=== PATIENT | male | born 1965 | race Caucasian/White ===

== ENCOUNTER 2016-09-06 07:41 | Day surgery (SDC) | payer OTHER ==
[~2016-09-06] VITALS: Ht 181.6 cm; Wt 105.8 kg
[2016-09-06] VITALS (10 sets, daily range): BP systolic 105–141; BP diastolic 72–89; PULSE 54–72; RESP 9–25; O2SAT 96–100
--- NOTE | 2016-09-06 07:09 | PCM.HPANE ---
Patient Data Surgeon Admitting Provider: Attending Provider:Mark Montana MD Primary Care Physician:Roya Other Provider:Tamera Nesbitt Anesthesia Reason for Visit Right Kidney Stone Ht/WT & BMI Height (Feet): 5 Height (Inches): 11.5 Weight (Kilograms): 105.778 Body Mass Index 31.00 Allergies Coded Allergies: TAPE (Verified Adverse Reaction, Severe, blisters, 09/05/16) Past Anesthesia History Anesthesia History: Denies:: Anesthesia Reactions, Malignant Hyperthermia Diabetes History Hx Diabetes?: No MRSA MRSA: No Medications Reported Medications Hydrocodone-Acetaminophen 10-325 mg 1 Each Tablet1-2 Tablet PO Q4H PRN For Pain Ref 0 09/05/16 Ciprofloxacin (Cipro)500 Mg [id number] Mg PO BID Ref 0 09/05/16 Albuterol Sulfate (Ventolin HFA Inhaler)200 Puff/18 Gm Inhaler2 Puff INHALATION Q4H PRN For Wheezing 07/15/16 Discontinued Reported Medications Sucralfate 1 Gm Tablet1 Gm PO ACHS #100 1/2 hour before meals and at bedtime 07/15/16 Famotidine 20 Mg [id number] Mg PO BID #60 07/15/16 History History of ENT Problems?: Yes HEENT History: Positive for:: Dysphagia (2000 esophageal stricture) Teeth Condition: Broken Teeth Tooth Decay Hx of Heart Problems?: No Cardiovascular History: Denies:: Cardiac Surgery Chest Pain Congestive Heart Failure Heart Murmur Hypertension Hx of Respiratory Problem?: Yes Respiratory History: Denies:: Tuberculosis Use of C-PAP Machine (SNORES) Hx Neurologic Problems?: Yes Neurological History: Positive for:: Headaches (HX OF HEADACHES W/ EJACULATION ) TIA (POSSIBLY) Denies:: CVA Seizures Hx of GI Problems?: Yes Gastrointestinal History: Positive for:: Gastroesphageal Reflux (HX PUD) Rectal Bleeding Denies:: Diverticulitis Other GI Pertinent History: S/P APPY Hx of Problems?: Yes Genitourinary History: Positive for:: Kidney Stones (HX MULT. PRIOR STONES PASSED ON OWN; S/P ESWL,CYSTO/LITHOTRIPSY 07/06) Other Pertinent History: C/OF SCROTAL PAIN,NOCTURIA & URINARY DRIBBLING Male Hx: Denies:: Prostate Problems Scrotal Mass Testicular Surgery Skin History: Denies:: History Skin Disorders? Pressure Ulcers Hx Musculoskeletal Problems?: Yes Musculoskeletal History: Positive for:: Back Injury (L4-5, C6-7) Osteoarthritis Hx of Psycho/Social Problems?: Yes Psycho Social History: Positive for:: Anxiety Hx Depression Hx Surgeries?: Yes (APPY,SPINAL SURGERY,ESWL,CYSTO/LITHOTRIPSY) Hx Any Other Health Problems?: Yes Other History: Denies:: Cancer Endocrine Disease Hospitalization Thyroid Disease History Blood Transfusions: Denies:: Blood Transfusions Hx Diabetes: No Hx Alcohol Use: NoHx Substance Use: Yes (marijuana twice daily) Smoking Status: Current Every Day Smoker Have You Smoked inLast 12 mo: Yes (marijuana 2X/DAY) Stop/Bang S-Snoring: Do You Snore Loudly: Yes T-Tired: feel tired, fatigued: Yes O-Obsered: Observed not breath: Yes P-Blood Pressure: treated: No B- Body Mass Index > 35 kg/m2: No A- Age over 50: Yes N- Neck Large Circumference: Yes G- Gender Male: Yes BIRGIT Total Score: 6 Risk Assessment Category Category 1A: Patient has history of documented sleep apnea, and HAS NOT received any narcotic, sedative or anesthesia administration during this stay. Category 1B: Patient has history of documented sleep apnea, and HAS received any narcotic , sedative or anesthesia administration during this stay Category 2: Patient has SUSPECTED Obstructive Sleep Apnea, and HAS received any narcotic , sedative or anesthesia administration during this stay. Category 3: Patient has SUSPECTED Obstructive Sleep Apnea and HAS NOT received narcotic, sedative or anesthesia administration during this stay. Category 4: Outpatient in Procedural Areas with known sleep apnea or who screen positive for High Risk via the STOP/BANG questionnaire. Exam Exam General Appearance: Alert, Oriented X3, Cooperative HEENT/AIRWAY: MP 2, Neck Movement (from), Mouth Opening (wnl) Lungs: Clear to Auscultation Heart: Exam Unremarkable Plan Impression Patient chart reviewed, patient interviewed and anesthestic plan with risks, benefits, and alternatives discussed, and informed consent obtained. NPO Status: 07/14/16 0000 ASA Physical Status: ASA2 Mod Systemic Disease Anesthetic Plan: GA Bene/Risks/Altern/Consents: Yes HP Complete Prior to Induction: Yes Aurelio Russell MD Sep 06, 2016 07:09
[~2016-09-06 07:41] MED LIST: ALBU18HF INHALATION; CIPR-231 PO; CeFAZolin Inj 2 GM in IV Premix 1 EACH IV SCH; HYDR-3740 PO; Lactated Ringer's 1,000 ML IV SCH
[2016-09-06] MEDS ORDERED: Ondansetron 2 mg/mL 2 mL Inj ONE (07:42)
[2016-09-06] MEDS ORDERED: Rocuronium 10 mg/mL 5 mL Inj ONE (07:42)
[2016-09-06] MEDS ORDERED: fentaNYL-PF 50 mCg/mL 2 mL Inj ONE (07:42)
[2016-09-06] MEDS ORDERED: Propofol 10,000 mCg/mL 20 mL Inj ONE (07:42)
[2016-09-06] MEDS ORDERED: LORazepam 1 mg Tablet ONE (08:06)
[2016-09-06] MEDS ORDERED: Lactated Ringer's 1,000 ML IV ONE (08:11)
[2016-09-06] MEDS: fentaNYL-PF 50 mCg/mL 2 mL Inj ONE ×2 (08:19→08:31)
[2016-09-06] MEDS ORDERED: LORazepam 1 mg Tablet PO PRN (08:30)
[2016-09-06] MEDS ORDERED: fentaNYL-PF 50 mCg/mL 2 mL Inj IVPUSH PRN ×2 (08:30→09:55)
[2016-09-06] MEDS ORDERED: Lactated Ringer's 500 ML IV PRN (09:52)
[2016-09-06] MEDS ORDERED: Lactated Ringer's 1,000 ML IV SCH (09:52)
[2016-09-06] MEDS ORDERED: HYDROmorphone 1 mg/mL Inj IVPUSH PRN (09:55)
[2016-09-06] MEDS ORDERED: Dexamethasone 4 mg/mL Inj IVPUSH PRN (09:55)
[2016-09-06] MEDS ORDERED: Ondansetron 2 mg/mL 2 mL Inj IVPUSH PRN (09:55)
[2016-09-06] MEDS ORDERED: Atropine 0.4 mg/mL Inj IVPUSH PRN (09:55)
[2016-09-06] MEDS ORDERED: Phenylephrine 10,000 mCg/mL Inj IVPUSH PRN (09:55)
[2016-09-06] MEDS ORDERED: Labetalol 5 mg/mL 4 mL Inj IV PRN (09:55)
[2016-09-06] MEDS ORDERED: EPHEDrine Sulfate 50 mg/mL Inj IVPUSH PRN (09:55)
[2016-09-06] MEDS ORDERED: hydrALAZINE 20 mg/mL Inj IVPUSH PRN (09:55)
[2016-09-06] MEDS ORDERED: Belladonna Alk-Opium 60 mg Rectal Suppository RECTAL ONE (10:13)
--- NOTE | 2016-09-06 11:29 | PCM.SURGPO ---
Immediate Operative Note Date of Surgery: Sep 06, 2016 Pre Operative Diagnosis R renal calculus Post Operative Diagnosis R renal calculus Procedure Cystoscopy, R ureteroscopy, Holmium laser lithotripsy, basket extraction of calculus fragments, and R ureteral stent placement Surgeon and Pavilion Cutter Surgeon: Mark Montana MD Assistants: None Findings R semi-rigid ureteroscopy revealed no calculi in R distal or R mid ureter. A 12 /14F x 35cm ureteral access sheath was placed in R ureter. R flexible ureteroscopy revealed no calculi in R proximal ureter and an approx. 10-11mm R lower pole renal calculus. Holmium laser lithotripsy and basket extraction of calculus fragments were performed. R ureteral JJ stent was placed. Complications There were no periprocedural complications identified. Surgical Specimen Removed: Yes Specimen sent to Pathology: No Surgical Specimen description: R renal calculus fragments sent to lab for stone analysis Anesthetic Administered: GA Grafts, Implants: Other (28cm x 5F R ureteral JJ stent (no string)) Output, Estimated Blood Loss: <5 Blood Admin during surgery: No Additional information Patient to be discharged home when stable, to return to see me in 1 week for cystoscopy, stent removal, and post-op visit. Mark Montana MD Sep 06, 2016 11:29
--- NOTE | 2016-09-06 11:33 | PCM.ANEP1 ---
Post Anesthesia Phase 1 PACU Phase 1 Assessment Date of Service: Sep 06, 2016 Vital Signs Vital Signs Date Time Temp Pulse Resp B/P Pulse Ox O2 Delivery O2 Flow Rate FiO2 09/06/16 11:30 59 16 122/86 97 Room Air 09/06/16 11:25 72 25 141/85 96 Room Air 09/06/16 11:20 36.1 09/06/16 08:20 36.4 64 18 105/72 96 Room Air Anesthetic Administered: GA Level of Alertness: Awake, talking ALEXANDER's with Equal Strength: Yes Pain: No Nausea or Vomiting: No Oxygen Delivery: Room Air Lungs: Normal Air Movement Aurelio Russell MD Sep 06, 2016 11:33
--- NOTE | 2016-09-06 11:39 | PCM.DISURG ---
Surgical Discharge Instruction Date of Service Sep 06, 2016 Dates of Hospitalization Date of Hospital Admission Sep 06, 2016 Providers Admitting Physician: Mark Montana MD Primary Care Physician: Nopgermania Attending Physician: Mark Montana MD Discharge Diagnosis Discharge Diagnosis R renal calculus Post Operative diagnosis R renal calculus Diet Discharge Diet: No restrictions, Other (Drink at least 10-12 8oz. glasses (3 liters) of fluids per day) Activity Discharge Activity-General: No restrictions, No driving while taking narcotic Dressing and Incisional Care Hygiene: May shower Follow Up Plan Follow-up Provider (F9): Mark Montana MD Follow-up appointment: Weeks (1 week for cystoscopy, stent removal, and post- op visit) Call your provider for: Fever, Chills, Vomiting, Other (Pain uncontrolled by pain medications) Mark Montana MD Sep 06, 2016 11:39
[2016-09-06] MEDS ORDERED: oxyCODONE-Acetamin 10-325 mg Tablet PO ONE (11:47)
[2016-09-06] MEDS ORDERED: oxyCODONE-Acetamin 5-325 mg Tablet PO ONE (11:55)
[2016-09-06] MEDS ORDERED: Phenazopyridine 97.5 mg Tablet ONE (13:15)
[2016-09-06] MEDS ORDERED: oxyCODONE-Acetamin 5-325 mg Tablet PO SCH (16:30)
--- NOTE | 2016-09-07 03:01 | OP ---
[address] [address] OPERATIVE REPORT PATIENT: LOREN RIOS : 1965 MR#: [id number] ADMIT: 09/06/2016 JOB ID: [id number] DATE OF SURGERY: 09/06/2016 PREOPERATIVE DIAGNOSIS(ES): Right renal calculus. POSTOPERATIVE DIAGNOSIS(ES): Right renal calculus. PROCEDURE: 1. Cystoscopy. 2. Right ureteroscopy. 3. Holmium laser lithotripsy. 4. Basket extraction of calculus fragments. 5. Right ureteral stent placement. SURGEON: Mark Montnaa MD. MOBILE APPLICATION DEVELOPER: None. ANESTHESIA: General. ESTIMATED BLOOD LOSS: Less than 5 mL. SPECIMENS: Right renal calculus fragments sent to the lab for stone analysis. DRAINS: A 28 cm x 5-Panamanian right ureteral double-J stent. COMPLICATIONS: None. CONDITION: Stable. FINDINGS: Right semi-rigid ureteroscopy revealed no calculi in right distal or right mid ureter. A 12/14-Panamanian x 35 cm ureteral access sheath was placed in right ureter. Right flexible ureteroscopy revealed no calculi in right proximal ureter and an approximately 10-11 mm right lower pole renal calculus. Holmium laser lithotripsy and basket extraction of calculus fragments were performed. Right ureteral double-J stent was placed. INDICATIONS: The patient is a 50-year-old male with a right renal calculus, with right back and right flank pain. The patient now presents for cystoscopy, right ureteroscopy, holmium laser lithotripsy, basket extraction of calculus fragments and right ureteral stent placement. PROCEDURE: Patient was brought to the operating room and placed supine on the operating room table. The patient was given Ancef IV antibiotics. Sequential compression device boots were placed. General anesthesia was administered. The patient was brought down into dorsal lithotomy position. The patient was prepped and draped in standard sterile surgical fashion. A 22-Panamanian rigid cystoscope was placed into the distal urethra without difficulty. Cystoscopy revealed normal distal urethra, no bladder, tumors, lesions or calculi, and bilateral ureteral orifices in normal position. An angled-tip UltraTrack guidewire was passed into the right ureteral orifice and passed up the right ureter into right renal pelvis. The rigid cystoscope was removed from the patient. The guidewire was secured to the drape with a Jodie clamp as a safety wire. A semi-rigid ureteroscope was passed through the urethra and bladder and into the right ureteral orifice with assistance of a PTFE guidewire. Right semi-rigid ureteroscopy revealed no calculi in right distal or right mid ureter. The PTFE guidewire was advanced up the right ureter and into the right renal pelvis. The semi-rigid ureteroscope was removed from the patient. A 12/14-Panamanian x 35 cm ureteral access sheath was passed over the PTFE guidewire through the urethra and bladder and up the right ureter into the right mid ureter. The inner portion of the sheath and PTFE guidewire were removed from the patient. A flexible ureteroscope was advanced through the ureteral access sheath into the right proximal ureter. Right flexible ureteroscopy revealed no calculi in right proximal ureter and an approximately 10-11 mm right lower pole renal calculus. The calculus was manipulated into an upper pole calyx using a 2.2-Panamanian NCircle Nitinol basket, and holmium laser lithotripsy of the calculus was performed using a 273 micron holmium laser fiber. Basket extraction of all significant 2 mm or larger calculus fragments was performed using the NCircle Nitinol basket. Calculus fragments were sent to the lab for stone analysis. The right renal pelvis and all calyces were visualized. No significant 2 mm or larger calculus fragments were seen. A small amount of contrast was instilled into the right renal collecting system to illuminate the right renal collecting system to aid in stent placement. The flexible ureteroscope and ureteral access sheath were backed down the right ureter and the entire right ureter was visualized. No significant 2 mm or larger calculus fragments were seen. The flexible ureteroscope and ureteral access sheath were removed from the patient. The rigid cystoscope was passed over the safety guidewire through the urethra into the bladder. A 28 cm x 5-Panamanian ureteral double-J stent, with the stent string removed prior to stent placement, was passed over the guidewire through the cystoscope and passed up the right ureter and placed so that the proximal pigtail was located in right renal pelvis and distal pigtail was located in the bladder. The guidewire was removed. Correct positioning of the stent was confirmed both fluoroscopically and under direct visualization using the cystoscope. Good efflux of contrast could be seen draining from the distal end of the stent into the bladder, further confirming correct stent positioning. The bladder was drained via the cystoscope. The cystoscope was removed from the patient. Skin was cleaned and dried. Patient was placed in supine position. Patient was awakened from general anesthesia and transferred to the recovery room in stable condition. The patient tolerated the procedure well. Plan is for the patient to be discharged home when stable and to return to see me in the office in one week for cystoscopy, stent removal and postoperative visit. JOVITA
--- NOTE | 2016-09-07 07:08 | PCM.ANEP2 ---
Post Anesthesia Evaluation ASA/CMS Post Anesthesia VS in Patient's Normal Range?: Yes Resp Stable; Airway Patent?: Yes CV Function & Hydration Stable: Yes Mental Status Recovered?: Yes Pain control Satisfactory?: Yes N/V Control Satisfactory?: Yes Aurelio Russell MD Sep 07, 2016 07:08
[2016-09-13 14:09] LABS: Stone Color Tan (.)
== END 2016-09-06 23:59 | disposition home or self-care (01) ==
LOC: SAS 07:41
PROVIDERS: ATTEND Urology
DX: N20.0 Calculus of kidney (principal); N41.1 Chronic prostatitis; N50.82 Scrotal pain; N39.43 Post-void dribbling; N32.81 Overactive bladder; R39.15 Urgency of urination; K27.9 Peptic ulcer, site unspecified, unspecified as acute or chronic, without hemorrhage or perforation
CPT/HCPCS: 52356; 74420; 82360; J1170; J2405; J3010; J7120; Q9967